=== PATIENT | female | born 1995 | race Caucasian/White ===

== ENCOUNTER → 2018-10-18 10:37 | Outpatient (CLI) | payer SELFPAY ==
[2018-10-18 11:15] LABS: PROTEIN - URINE 20.7 mg/dL (0.0-11.9)
== END | disposition home or self-care (01) ==
LOC: D.LDO 10:37
PROVIDERS: ATTEND Obstetrics & Gynecology
DX: Z00.00 Encounter for general adult medical examination without abnormal findings (principal)